=== PATIENT | female | born 1930 | race Native Hawaiian/Other Pacific Islander ===

== ENCOUNTER 2017-11-19 10:27 | Day surgery (SDC) | payer MEDICAID ==
[2017-11-14 08:42] VITALS: BMI 25.9
[2017-11-19] MEDS ORDERED: Gentamicin 160 MG in Sodium Chloride 0.9% 100 ML IVPB ONE (12:15)
[2017-11-19] MEDS ORDERED: Ciprofloxacin 400mg/200ml D5W 400 MG/200 ML BAG IVPB ONE (13:20)
[2017-11-19] MEDS ORDERED: Lidocaine 2% Jelly (Uro-Jet) ONE (13:21)
[2017-11-19] MEDS ORDERED: Propofol 10 mg/ml Inj (20 ML) ONE (13:32)
--- NOTE | 2017-11-19 13:56 | PCM.SURG1 ---
Surgeon's Initial Post Op Note - Surgeon's Notes Surgeon: Nabeel Accounting Technician: LOTUS Type of Anesthesia: General LMA Anesthesia Administered By: Staff Pre-Operative Diagnosis: Bladder tumor Operative Findings: Medium BT Post-Operative Diagnosis: Medium BT Operation Performed: TURBT MEDIUM Specimen/Specimens Removed: BT Estimated Blood Loss: EBL {In ML}: 0 Blood Products Given: N/A Drains Used: No Drains Post-Op Condition: Good Date of Surgery/Procedure: 11/19/17 Time of Surgery/Procedure: 13:56
[2017-11-19 15:55] VITALS: RESP 18
[2017-11-19 17:17] VITALS: BP 165/78; PULSE 82; TEMP 97.8; O2SAT 97
--- NOTE | 2017-11-20 20:29 | OP ---
PROCEDURE DATE: 11/19/2017 PREOPERATIVE DIAGNOSIS: Bladder mass. POSTOPERATIVE DIAGNOSIS: Medium size bladder tumor. PROCEDURE: TURBT medium. DESCRIPTION OF PROCEDURE: Prior to the procedure, a detailed informed consent was obtained from the patient with the assistance of a swimming pool installer. The patient was made aware of all risk and complications and other ways of managing bladder cancer. The patient was brought into the room and a time-out was taken. She was given a prophylactic dose of antibiotics and cystoscoped with #21 Storz panendoscope. There was noted to be a tumor at the base of the trigone well away from the ureteral orifice. A continuous flow resectoscope was then inserted after removing the cystoscope and the growth was resected down to its base which was fulgurated extensively. The tumor did not appear invasive. There was no involvement of either ureteral orifice. The patient tolerated this procedure well. The patient was sent to the recovery room in good condition. The family and the patient were given explanation of necessary followup, possible complications, and their management. Philippe Lees MD
== END 2017-11-19 16:40 | disposition home or self-care (01) ==
LOC: C.SDS 10:27
PROVIDERS: ATTEND Urology
DX: N30.80 Other cystitis without hematuria (principal); D41.4 Neoplasm of uncertain behavior of bladder
CPT/HCPCS: 52235; 88305; J0744; J1580